=== PATIENT | male | born 1955 | race Caucasian/White ===

== ENCOUNTER 2018-10-26 20:33 | Emergency (ER) | payer OTHER ==
--- OUTSIDE RECORDS SUMMARY | 2018-10-26 20:35 | XMS REPORT | Clinical Summary ---
:1955 Author Organization [facility] Address [address] [place] [address] Care Team Providers Name Role Phone Demarco Pittman MD Primary Care Provider Allergies Not on File Medications Not on file Active Problems Not on file Encounters Date Type Specialty Care Team Description 02/09/2018 Hospital Encounter Radiology Demarco Pittman Benign essential hypertension 02/06/2018 Transcribe Orders Access Demarco Pittman Benign essential hypertension (Primary Dx) 02/02/2018 Transcribe Orders Procedural Demarco Pittman Essential Cardiology hypertension (Primary Dx) after 10/25/2017 Social History Tobacco Use Types Packs/Day Years Used Date Never Assessed Sex Assigned at Date Recorded Not on file Job Start Date Occupation Industry Not on file Not on file Not on file Travel History Travel Start Travel End No recent travel history available. Last Filed Vital Signs Not on file Plan of Treatment Health Maintenance Due Date Last Done Comments COLON CANCER SCREENING 2007 SHINGLES VACCINES (1 of 2) 2007 INFLUENZA VACCINE 05/30/2018 Procedures Procedure Name Priority Date/Time Associated Diagnosis Comments CT HEART SCAN W Routine 02/09/2018 2:55 Benign essential Results for this PHYSICIAN ORDER PM CDT hypertension procedure are in the results section. after 10/25/[address] heart scan w physican order (self pay) (02/09/2018 2:55 PM CDT) Narrative Performed At EXAM: RADIANT CT heart with 3D a calcium score CLINICAL HISTORY: I10 Essential (primary) hypertension, I10 COMPARISON STUDIES: None. TECHNIQUE: Without administration of iodinated contrast intravenously, axial CT images of the heart were obtained. Iterative reconstruction and/or automated exposure control techniques were employed to reduce radiation dose. FINDINGS: CT calcium score. Overall calcium scores: Agatston total calcium score: 108 Total volume score: 68 mm3 Percentile: 60 Artery scores: Left main coronary artery: 0.0 Left anterior descending artery: 107 Left circumflex artery: 0.0 Right coronary artery: 1 Limited chest: Visualized portions of the thymus and esophagus are normal. Heart is normal in size. Right dominant coronary arterial system. Minimal calcification of the aortic valve. Small pericardial effusion. Visualized portions of the ascending and descending thoracic aortas are unremarkable. Main pulmonary artery diameter is normal No visualized mediastinal or hilar adenopathy. Minimal linear opacity lingula, discoid atelectasis versus scar. Otherwise, visualized portions of the lungs are clear. Limited abdomen: 1.1 cm diameter fluid density structure dome of the left lobe of liver, segment 2 (series 2, slice 61), likely a simple cyst. Two additional subcentimeter hypodensities within the dome of the left lobe of liver, segment 2 (series 2, slice 61). These are incompletely evaluated on this noncontrast examination but statistically likely to be simple cysts or hemangiomas. Remainder visualized portions of the liver, stomach, and spleen are unremarkable. Visualized upper abdominal vasculature is unremarkable. No adenopathy in visualized portions of the upper abdomen. Musculoskeletal: No suspicious osseous or soft tissue structures. IMPRESSION: 1. Coronary artery Agatston total calcium score is 108, which places patient in the 60th percentile. 2. No significant extracardiac findings. [facility]-[id number] Procedure Note Hm Interface, Radiology Results Incoming - 02/09/2018 3:42 PM CDT EXAM: CT heart with 3D a calcium score CLINICAL HISTORY: I10 Essential (primary) hypertension, I10 COMPARISON STUDIES: None. TECHNIQUE: Without administration of iodinated contrast intravenously, axial CT images of the heart were obtained. Iterative reconstruction and/or automated exposure control techniques were employed to reduce radiation dose. FINDINGS: CT calcium score. Overall calcium scores: Agatston total calcium score: 108 Total volume score: 68 mm3 Percentile: 60 Artery scores: Left main coronary artery: 0.0 Left anterior descending artery: 107 Left circumflex artery: 0.0 Right coronary artery: 1 Limited chest: Visualized portions of the thymus and esophagus are normal. Heart is normal in size. Right dominant coronary arterial system. Minimal calcification of the aortic valve. Small pericardial effusion. Visualized portions of the ascending and descending thoracic aortas are unremarkable. Main pulmonary artery diameter is normal No visualized mediastinal or hilar adenopathy. Minimal linear opacity lingula, discoid atelectasis versus scar. Otherwise, visualized portions of the lungs are clear. Limited abdomen: 1.1 cm diameter fluid density structure dome of the left lobe of liver, segment 2 (series 2, slice 61), likely a simple cyst. Two additional subcentimeter hypodensities within the dome of the left lobe of liver, segment 2 (series 2, slice 61). These are incompletely evaluated on this noncontrast examination but statistically likely to be simple cysts or hemangiomas. Remainder visualized portions of the liver, stomach, and spleen are unremarkable. Visualized upper abdominal vasculature is unremarkable. No adenopathy in visualized portions of the upper abdomen. Musculoskeletal: No suspicious osseous or soft tissue structures. IMPRESSION: 1. Coronary artery Agatston total calcium score is 108, which places patient in the 60th percentile. 2. No significant extracardiac findings. [facility]-[id number] [facility] Organization Address City/State/Zipcode Phone Number [facility] [address] [place] [address] after 10/25/2017 Advance Directives Patient has advance care planning documents on file. For more information, please contact:[address] [address]
[2018-10-26 21:47] LABS: Absolute Lymphocytes (CBC) 2.7 K/uL (0.7-4.9); Absolute Monocytes 0.6 K/uL (0.1-1.3); Absolute Neutrophil 5.7 K/uL (1.8-8.0); Basophils % 0.9 % (0-1.3); Eosinophils % 3.7 % (0-4.4); Hematocrit 43.2 % (39.6-49.0); Lymphocytes % 28.5 % (15.3-44.8); MPV 9.4 fL (7.6-11.3); Monocytes % 6.6 % (3.3-12.3)
[2018-10-26 21:51] LABS: Protime INR 1.03
[2018-10-26 22:11] LABS: ALT/SGPT 36 U/L (12-78); AST/SGOT 20 U/L (15-37); Albumin 3.8 g/dL (3.4-5.0); Alkaline Phosphatase 69 U/L (45-117); BUN Blood Urea Nitrogen 17 mg/dL (7-18); Bicarbonate 30 mmol/L (21-32); Bilirubin Direct 0.1 mg/dL (0-0.2); Bilirubin Total 0.4 mg/dL (0.2-1.0); Glucose Level 98 mg/dL (74-106); Magnesium 2.3 mg/dL (1.8-2.4); NT PRO-BNP 107 pg/mL (<125); Potassium 4.5 mmol/L (3.5-5.1); Protein, Total 7.4 g/dL (6.4-8.2); Sodium Level 142 mmol/L (136-145); Troponin (Emerg Dept Use Only) < 0.02 ng/mL (0.0-0.045)
[2018-10-26 22:17] LABS: Urine Blood NEGATIVE (NEG); Urine Glucose NEGATIVE (NEG); Urine Protein NEGATIVE (NEG)
[2018-10-26] MEDS ORDERED: ASPIRIN 81 MG CHEWABLE TABLET ONE (22:30)
--- NOTE | 2018-10-27 00:36 | EDPHYS ---
Physician Documentation [facility] Name: Waldo Francis Age: 63 yrs Sex: Male : 1955 Arrival Date: 10/26/2018 Time: 20:36 Bed 30 Private MD: Demarco Pittman V ED Physician Irwin Sena HPI: 10/27 05:12 This 63 yrs old Male presents to ER via Ambulatory with complaints of Chest kdr Pain. 05:12 The patient or guardian reports chest pain that is located primarily in the substernal kdr area. Onset: this morning. The pain does not radiate. Associated signs and symptoms: Pertinent positives: None. Pertinent negatives: diaphoresis, lightheadedness, nausea, near syncope, palpitations, shortness of breath, syncope, vomiting. The chest pain is described as aching, burning, sharp. Duration: The patient or guardian reports multiple episodes, that are intermittent, that wax and wane, with no pattern. Modifying factors: The symptoms are alleviated by nothing. the symptoms are aggravated by nothing. Severity of pain: At its worst the pain was moderate just prior to arrival, in the emergency department the pain has resolved and did so earlier today. The patient has not experienced similar symptoms in the past. The patient has not recently seen a physician. Historical: - Allergies: 10/26 21:01 No Known Allergies; aj - Home Meds: 21:01 Omeprazole Oral [Active]; levothyroxine oral [Active]; losartan oral oral [Active]; aj lisinopril-hydrochlorothiazide oral oral [Active]; - PMHx: 21:01 Hypertension; Hyperlipidemia; Hypothyroidism; aj - PSHx: 21:01 Hernia repair; Knee surgery; aj - Immunization history:: Adult Immunizations up to date. - Social history:: Smoking status: Patient/guardian denies using tobacco. - Ebola Screening: : Patient negative for fever greater than or equal to 101.5 degrees Fahrenheit, and additional compatible Ebola Virus Disease symptoms Patient denies exposure to infectious person Patient denies travel to an Ebola-affected area in the 21 days before illness onset No symptoms or risks identified at this time. ROS: 10/27 05:12 Constitutional: Negative for fever, chills, and weight loss, Eyes: Negative for injury, kdr pain, redness, and discharge, ENT: Negative for injury, pain, and discharge, Neck: Negative for injury, pain, and swelling, Respiratory: Negative for shortness of breath, cough, wheezing, and pleuritic chest pain, Abdomen/GI: Negative for abdominal pain, nausea, vomiting, diarrhea, and constipation, Back: Negative for injury and pain, : Negative for injury, bleeding, discharge, and swelling, MS/Extremity: Negative for injury and deformity, Skin: Negative for injury, rash, and discoloration, Neuro: Negative for headache, weakness, numbness, tingling, and seizure activity. Psych: Negative for depression, anxiety, suicide ideation, homicidal ideation, and hallucinations, Allergy/Immunology: Negative for hives, rash, and allergies, Endocrine: Negative for neck swelling, polydipsia, polyuria, polyphagia, and marked weight changes, Hematologic/Lymphatic: Negative for swollen nodes, abnormal bleeding, and unusual bruising. Cardiovascular: Positive for chest pain, Negative for edema, orthopnea, palpitations, paroxysmal nocturnal dyspnea, acute changes. Exam: 05:12 Constitutional: This is a well developed, well nourished patient who is awake, alert, kdr and in no acute distress. Head/Face: Normocephalic, atraumatic. Eyes: Pupils equal round and reactive to light, extra-ocular motions intact. Lids and lashes normal. Conjunctiva and sclera are non-icteric and not injected. Cornea within normal limits. Periorbital areas with no swelling, redness, or edema. Neck: Trachea midline, no thyromegaly or masses palpated, and no cervical lymphadenopathy. Supple, full range of motion without nuchal rigidity, or vertebral point tenderness. No Meningismus. Chest/axilla: Normal chest wall appearance and motion. Nontender with no deformity. No lesions are appreciated. Cardiovascular: Regular rate and rhythm with a normal S1 and S2. No gallops, murmurs, or rubs. Normal PMI, no JVD. No pulse deficits. Respiratory: Lungs have equal breath sounds bilaterally, clear to auscultation and percussion. No rales, rhonchi or wheezes noted. No increased work of breathing, no retractions or nasal flaring. Abdomen/GI: Soft, non-tender, with normal bowel sounds. No distension or tympany. No guarding or rebound. No evidence of tenderness throughout. Back: No spinal tenderness. No costovertebral tenderness. Full range of motion. Skin: Warm, dry with normal turgor. Normal color with no rashes, no lesions, and no evidence of cellulitis. MS/ Extremity: Pulses equal, no cyanosis. Neurovascular intact. Full, normal range of motion. Neuro: Awake and alert, GCS 15, oriented to person, place, time, and situation. Cranial nerves II-XII grossly intact. Motor strength 5/5 in all extremities. Sensory grossly intact. Cerebellar exam normal. Normal gait. Psych: Awake, alert, with orientation to person, place and time. Behavior, mood, and affect are within normal limits. Vital Signs: 10/26 21:01 BP 153 / 99; Pulse 60; Resp 20; Temp 98.0; Pulse Ox 99% on R/A; Weight 93.44 kg; Height aj 5 ft. 11 in. (180.34 cm); 21:28 BP 144 / 95; Pulse 60; Resp 18; Pulse Ox 100% on R/A; Pain 3/10; mg2 23:32 BP 139 / 85; Pulse 55; Resp 18; Pulse Ox 98% on R/A; Pain 0/10; mg2 10/27 00:49 BP 138 / 85; Pulse 59; Resp 18; Pulse Ox 100% on R/A; Pain 0/10; mg2 10/26 21:01 Body Mass Index 28.73 (93.44 kg, 180.34 cm) aj MDM: 00:36 Patient medically screened. kdr 05:12 Data reviewed: vital signs, nurses notes, lab test result(s), radiologic studies. kdr Counseling: I had a detailed discussion with the patient and/or guardian regarding: the historical points, exam findings, and any diagnostic results supporting the discharge/admit diagnosis, lab results, radiology results, the need for outpatient follow up. 10/26 21: Order name: Basic Metabolic Panel; Complete Time: 23:25 mg2 10/26 21: Order name: CBC with Diff; Complete Time: 23:25 mg2 10/26 21: Order name: LFT's; Complete Time: 23:25 mg2 10/26 21:26 Order name: Magnesium; Complete Time: 23:25 mg2 10/26 21:26 Order name: NT PRO-BNP; Complete Time: 23:25 mg2 10/26 21:26 Order name: PT-INR; Complete Time: 23:25 mg2 10/26 21:26 Order name: Troponin (emerg Dept Use Only); Complete Time: 23:25 mg2 10/26 21:26 Order name: XRAY Chest (1 view) mg2 10/26 21:26 Order name: EKG; Complete Time: 21:27 mg2 10/26 21:26 Order name: Cardiac monitoring; Complete Time: 21:26 mg2 10/26 21:26 Order name: EKG - Nurse/Tech; Complete Time: 21: mg2 10/26 22:12 Order name: Urine Dipstick--Ancillary (enter results); Complete Time: 23:25 mw2 10/26 23:27 Order name: Troponin (emerg Dept Use Only): Repeat two hours after initial test; kdr Complete Time: 00:34 10/26 21:26 Order name: IV Saline Lock; Complete Time: 21: mg2 10/26 21:26 Order name: Labs collected and sent; Complete Time: 21: mg2 10/26 21:26 Order name: O2 Per Protocol; Complete Time: : mg2 10/26 21:26 Order name: O2 Sat Monitoring; Complete Time: 21: mg2 10/26 23:27 Order name: EKG - Nurse/Tech: With 2 hour troponin; Complete Time: 23:50 kdr Administered Medications: 10/26 22:22 Drug: Aspirin Chewable Tablet 324 mg Route: PO; mg2 23:30 Follow up: Response: No adverse reaction mg2 Disposition: 10/27/18 00:36 Discharged to Home. Impression: Chest pain, unspecified. - Condition is Stable. - Discharge Instructions: Nonspecific Chest Pain, [id number]. - Medication Reconciliation Form, Thank You Letter, Antibiotic Education, Prescription Opioid Use form. - Follow up: Demarco Pittman MD; When: 2 - 3 days; Reason: If symptoms return, Further diagnostic work-up, Recheck today's complaints, Continuance of care, Re-evaluation by your physician. - Problem is new. - Symptoms are resolved. Signatures: Dispatcher [employer] EDMS Radha Bean RN RN aj Rittger, Kevin, MD MD kdr Gardose, Michele, RN RN mg2 Corrections: (The following items were deleted from the chart) 10/27 00:52 00:36 10/27/2018 00:36 Discharged to Home. Impression: Chest pain, unspecified. mg2 Condition is Stable. Forms are Medication Reconciliation Form, Thank You Letter, Antibiotic Education, Prescription Opioid Use. Follow up: Demarco Pittman; When: 2 - 3 days; Reason: If symptoms return, Further diagnostic work-up, Recheck today's complaints, Continuance of care, Re-evaluation by your physician. Problem is new. Symptoms are resolved. kdr
--- NOTE | 2018-10-27 00:36 | ER ---
Nurse's Notes [facility] Name: Waldo Francis Age: 63 yrs Sex: Male : 1955 Arrival Date: 10/26/2018 Time: 20:36 Bed 30 Private MD: Demarco Pittman V Diagnosis: Chest pain, unspecified Presentation: 10/26 20:59 Presenting complaint: Patient states: Sternal chest pain that started upon waking this aj AM. Reports occasional nausea. Transition of care: patient was not received from another setting of care. Onset of symptoms was October 26, 2018. Risk Assessment: Do you want to hurt yourself or someone else? Patient reports no desire to harm self or others. Initial Sepsis Screen: Does the patient meet any 2 criteria? No. Patient's initial sepsis screen is negative. Does the patient have a suspected source of infection? No. Patient's initial sepsis screen is negative. Care prior to arrival: None. 20:59 Method Of Arrival: Ambulatory aj 20:59 Acuity: JOSE 3 aj Triage Assessment: 21:01 General: Appears in no apparent distress. comfortable, Behavior is calm, cooperative, aj appropriate for age. Pain: Complains of pain in mid-sternal area. Neuro: Level of Consciousness is awake, alert, obeys commands, Oriented to person, place, time, situation, Appropriate for age. Cardiovascular: Reports chest pain, nausea, Capillary refill < 3 seconds in bilateral fingers Patient's skin is warm and dry. Respiratory: Airway is patent Respiratory effort is even, unlabored, Respiratory pattern is regular, symmetrical. Derm: Skin is intact, is healthy with good turgor, Skin is pink, warm \T\ dry. normal. Historical: - Allergies: 21:01 No Known Allergies; aj - Home Meds: 21:01 Omeprazole Oral [Active]; levothyroxine oral [Active]; losartan oral oral [Active]; aj lisinopril-hydrochlorothiazide oral oral [Active]; - PMHx: 21:01 Hypertension; Hyperlipidemia; Hypothyroidism; aj - PSHx: 21:01 Hernia repair; Knee surgery; aj - Immunization history:: Adult Immunizations up to date. - Social history:: Smoking status: Patient/guardian denies using tobacco. - Ebola Screening: : Patient negative for fever greater than or equal to 101.5 degrees Fahrenheit, and additional compatible Ebola Virus Disease symptoms Patient denies exposure to infectious person Patient denies travel to an Ebola-affected area in the 21 days before illness onset No symptoms or risks identified at this time. Screenin:28 Abuse screen: Denies threats or abuse. Denies injuries from another. Nutritional mg2 screening: No deficits noted. Tuberculosis screening: No symptoms or risk factors identified. Fall Risk IV access (20 points). Assessment: 21:27 General: Appears in no apparent distress. comfortable, Behavior is calm, cooperative. mg2 Pain: Complains of pain in mid-sternal area Pain does not radiate. Pain currently is 3 out of 10 on a pain scale. Quality of pain is described as pressure, Pain began gradually, 7 am this morning Is intermittent. Neuro: Level of Consciousness is awake, alert, obeys commands, Oriented to person, place, time, situation. Cardiovascular: Capillary refill < 3 seconds Patient's skin is warm and dry. Respiratory: Airway is patent Respiratory effort is even, unlabored, Respiratory pattern is regular, symmetrical. GI: No signs and/or symptoms were reported involving the gastrointestinal system. : No signs and/or symptoms were reported regarding the genitourinary system. EENT: No deficits noted. Derm: Skin is intact, is healthy with good turgor, Skin is pink, warm \T\ dry. normal. Musculoskeletal: No signs and/or symptoms reported regarding the musculoskeletal system. 23:16 Reassessment: Patient appears in no apparent distress at this time. Patient and/or mg2 family updated on plan of care and expected duration. Pain level reassessed. Patient is alert, oriented x 3, equal unlabored respirations, skin warm/dry/pink. 23:31 Reassessment: Patient appears in no apparent distress at this time. Patient and/or mg2 family updated on plan of care and expected duration. Pain level reassessed. Patient is alert, oriented x 3, equal unlabored respirations, skin warm/dry/pink. 10/27 00:49 Reassessment: patient improved. pain-free. mg2 Vital Signs: 10/26 21:01 BP 153 / 99; Pulse 60; Resp 20; Temp 98.0; Pulse Ox 99% on R/A; Weight 93.44 kg; Height aj 5 ft. 11 in. (180.34 cm); 21:28 BP 144 / 95; Pulse 60; Resp 18; Pulse Ox 100% on R/A; Pain 3/10; mg2 23:32 BP 139 / 85; Pulse 55; Resp 18; Pulse Ox 98% on R/A; Pain 0/10; mg2 10/27 00:49 BP 138 / 85; Pulse 59; Resp 18; Pulse Ox 100% on R/A; Pain 0/10; mg2 10/26 21:01 Body Mass Index 28.73 (93.44 kg, 180.34 cm) aj ED Course: 10/26 20:36 Patient arrived in ED. es 20:36 Demarco Pittman MD is Private Physician. es 21:00 Triage completed. aj 21:01 Arm band placed on left wrist. Patient placed in waiting room, Patient notified of wait aj time. EKG completed in triage. Results shown to MD. 21:25 Irwin Sena MD is Attending Physician. kdr 21:26 Genaro Blunt RN is Primary Nurse. mg2 21:28 No provider procedures requiring assistance completed. Inserted saline lock: 20 gauge mg2 in right antecubital area, using aseptic technique. Blood collected. Patient maintains SpO2 saturation greater than 95% on room air. 21:29 Patient has correct armband on for positive identification. cardiac monitor on. Pulse mg2 ox on. NIBP on. Door closed. 21:44 Initial lab(s) drawn, by ED staff, sent to lab. jp3 21:44 Urine collected: clean catch specimen, clear, tay colored. jp3 21:44 Basic Metabolic Panel Sent. jp3 21:44 CBC with Diff Sent. jp3 21:44 LFT's Sent. jp3 21:45 Magnesium Sent. jp3 21:45 NT PRO-BNP Sent. jp3 21:45 PT-INR Sent. jp3 21:45 Troponin (emerg Dept Use Only) Sent. jp3 21:57 XRAY Chest (1 view) In Process Unspecified. EDMS 10/27 00:35 Demarco Pittman MD is Referral Physician. kdr 00:50 IV discontinued, intact, bleeding controlled, No redness/swelling at site. Pressure mg2 dressing applied. Administered Medications: 10/26 22:22 Drug: Aspirin Chewable Tablet 324 mg Route: PO; mg2 23:30 Follow up: Response: No adverse reaction mg2 Outcome: 10/27 00:36 Discharge ordered by . kdr 00:50 Discharged to home ambulatory, with family. mg2 00:50 Condition: stable 00:50 Discharge instructions given to patient, family, Instructed on discharge instructions, follow up and referral plans. Demonstrated understanding of instructions, follow-up care. 00:52 Patient left the ED. mg2 Signatures: Dispatcher [employer] Radha Jacobsen RN RN aj Rittger, Kevin, MD MD kdr Salyer, Edna es Gardose, Michele, RN RN mg2 Herb Soares jp3 Corrections: (The following items were deleted from the chart) 10/26 21:03 21:01 Arm band placed on left wrist. Patient placed in an exam room, josep car
--- NOTE | 2018-10-27 08:28 | EKG ---
Test Date: 2018-10-26 Test Time: 21:00:20 Gold Nib Grinder: CAITLYN MEASUREMENT RESULTS: Intervals: Rate: 57 [place]: 174 QRSD: 84 QT: 408 QTc: 397 [place]: P: 57 [place]: 174 QRS: 63 T: 45 INTERPRETIVE STATEMENTS: Sinus bradycardia Otherwise normal ECG Compared to ECG 01/03/2003 10:04:00 Right-axis deviation no longer present Electronically Signed On 10-27-18 08:26:56 WIRE FRAME LAMPSHADE MAKER by Cedric Castillo
--- NOTE | 2018-10-27 08:57 | RAD REPORT ---
EXAM DESCRIPTION: RAD - Chest Single View - 10/26/2018 9:57 pm CLINICAL HISTORY: Chest pain COMPARISON: November 2008 TECHNIQUE: AP portable chest image was obtained 2150 hours . FINDINGS: Lungs are clear. Lung markings similar to comparison. Heart and vasculature are normal. No measurable pleural effusion and no pneumothorax. No acute bony abnormality seen. No acute aortic fin dings suspected. IMPRESSION: No acute cardiopulmonary process. No significant interval change.
--- NOTE | 2018-10-28 10:19 | EKG ---
Test Date: 2018-10-26 Test Time: 23:42:09 Hard Hat Diver: MEASUREMENT RESULTS: Intervals: Rate: 51 OR: 178 QRSD: 82 QT: 412 QTc: 379 [place]: P: 52 OR: 178 QRS: 33 T: 44 INTERPRETIVE STATEMENTS: Sinus bradycardia Otherwise normal ECG Compared to ECG 10/26/2018 21:00:20 No significant changes Electronically Signed On 10-28-18 10:18:13 DRYER FEEDER by Cedric Castillo
== END 2018-10-27 00:52 | disposition home or self-care (01) ==
LOC: ER 20:33
DX: R07.9 Chest pain, unspecified (principal); E78.5 Hyperlipidemia, unspecified; E03.9 Hypothyroidism, unspecified; I10 Essential (primary) hypertension; Z79.899 Other long term (current) drug therapy
CPT/HCPCS: 36415; 71045; 80048; 80076; 81003; 83735; 83880; 84484; 85025; 85610; 93005; 99285

== ENCOUNTER 2019-03-26 02:09 | Emergency (ER) | payer OTHER ==
--- OUTSIDE RECORDS SUMMARY | 2019-03-26 02:12 | XMS REPORT | Clinical Summary ---
:1955 Author Organization [facility] Address [address] [place] [address] Care Team Providers Name Role Phone Demarco Pittman MD Primary Care Provider Allergies Not on File Medications Not on file Active Problems Not on file Social History Tobacco Use Types Packs/Day Years [...] Comments COLON CANCER SCREENING 2007 SHINGLES VACCINES (#1) 2007 INFLUENZA VACCINE 05/30/2019 Results Not on fileafter 03/25/2018 Advance Directives Patient has advance care planning documents on file. For more information, please contact:[address] [place] [address]
[2019-03-26] MEDS ORDERED: ONDANSETRON 4 MG/2 ML VIAL ONE (02:42)
[2019-03-26] MEDS ORDERED: FAMOTIDINE 20 MG/2 ML VIAL IV ONE (02:42)
[2019-03-26] MEDS ORDERED: NA CHLORIDE 0.9% 1,000 ML ONE (02:42)
[2019-03-26 02:47] LABS: Absolute Monocytes 0.7 K/uL (0.1-1.3); Absolute Neutrophil 14.8 K/uL (1.8-8.0); Basophils % 0.3 % (0-1.3); Eosinophils % 0.1 % (0-4.4); Hematocrit 45.1 % (39.6-49.0); Lymphocytes % 11.2 % (15.3-44.8); MPV 9.4 fL (7.6-11.3); Monocytes % 3.8 % (3.3-12.3); RBC Red Blood Cell Count 5.35 M/uL (4.33-5.43)
[2019-03-26 03:05] LABS: Bilirubin Direct 0.2 mg/dL (0-0.2); Bilirubin Total 1.2 mg/dL (0.2-1.0); Potassium 3.7 mmol/L (3.5-5.1); Protein, Total 8.3 g/dL (6.4-8.2)
--- NOTE | 2019-03-26 03:51 | ER ---
Nurse's Notes [facility] Name: Waldo Francis Age: 63 yrs Sex: Male : 1955 Arrival Date: 03/26/2019 Time: 02:15 Bed 8 Private MD: Demarco Pittman V Diagnosis: Vomiting Presentation: 03/26 02:21 Presenting complaint: Patient states: Pt reports Tooth pain, nausea and vomiting that ea started this afternoon. Pt reports the vomiting looks like coffee grounds. Pt reports abdominal cramping. Transition of care: patient was not received from another setting of care. Onset of symptoms was March 26, 2019. Risk Assessment: Do you want to hurt yourself or someone else? Patient reports no desire to harm self or others. Initial Sepsis Screen: Does the patient meet any 2 criteria? No. Patient's initial sepsis screen is negative. Does the patient have a suspected source of infection? No. Patient's initial sepsis screen is negative. Care prior to arrival: None. 02:21 Method Of Arrival: Ambulatory ea 02:21 Acuity: JOSE 3 ea Triage Assessment: 02:25 General: Appears uncomfortable, Behavior is calm, cooperative, appropriate for age. ea Pain: Complains of pain in right lower quadrant and left lower quadrant Quality of pain is described as crampy. EENT: No signs and/or symptoms were reported regarding the EENT system. Neuro: Level of Consciousness is awake, alert, obeys commands, Oriented to person, place, time, situation. Cardiovascular: Patient's skin is warm and dry. GI: Abdomen is flat, Reports cramping, nausea, vomiting. Derm: Skin is dry, Skin is flushed, Skin temperature is warm. - Immunization history:: Adult Immunizations up to date. - Social history:: Smoking status: Patient/guardian denies using tobacco. - Ebola Screening: : No symptoms or risks identified at this time. Screenin:23 Abuse screen: Denies threats or abuse. Nutritional screening:. Tuberculosis screening: ea No symptoms or risk factors identified. Fall Risk None identified. Assessment: 02:28 Reassessment: see triage assessment. ea 03:06 Reassessment: Patient and/or family updated on plan of care and expected duration. Pain ea level reassessed. Patient is alert, oriented x 3, equal unlabored respirations, skin warm/dry/pink. Vital Signs: 02:23 BP 157 / 102; Pulse 78; Resp 20; Temp 97.2(TE); Pulse Ox 98% on R/A; Weight 92.99 kg; ea Height 5 ft. 11 in. (180.34 cm); Pain 9/10; 03:06 BP 139 / 81; Pulse 60; Resp 18; Pulse Ox 95% on R/A; ea 04:00 BP 140 / 68; Pulse 60; Resp 18; Temp 97.8; Pulse Ox 98% ; ea 02:23 Body Mass Index 28.59 (92.99 kg, 180.34 cm) ea ED Course: 02:15 Patient arrived in ED. do 02:15 Demarco Pittman MD is Private Physician. do 02:20 Raul Hernandez PA is PHCP. cp 02:20 Rigo Pastrana MD is Attending Physician. cp 02:20 Theodora King RN is Primary Nurse. ea 02:22 Triage completed. ea 02:24 Patient has correct armband on for positive identification. Bed in low position. Call ea light in reach. Side rails up X 1. 02:25 Arm band placed on right wrist. Patient placed in an exam room, on a stretcher, on ea pulse oximetry. 02:41 Inserted saline lock: 20 gauge in right forearm, using aseptic technique. Blood oe collected. 04:10 No provider procedures requiring assistance completed. IV discontinued, intact, ea bleeding controlled, No redness/swelling at site. Pressure dressing applied. Administered Medications: 02:40 Drug: NS 0.9% 1000 ml Route: IV; Rate: 1 bolus; Site: right forearm; rr5 07:10 Follow up: Response: No adverse reaction; IV Status: Completed infusion; IV Intake: ea 1000ml 02:42 Drug: Zofran 4 mg Route: IVP; Site: right forearm; rr5 03:30 Follow up: Response: No adverse reaction; Marked relief of symptoms ea 02:44 Drug: Pepcid 20 mg Route: IVP; Site: right forearm; rr5 03:30 Follow up: Response: No adverse reaction ea Intake: 07:10 IV: 1000ml; Total: 1000ml. ea Outcome: 03:49 Discharge ordered by . gs 04:10 Discharged to home ambulatory, with significant other. ea 04:10 Condition: improved 04:10 Discharge instructions given to patient, Instructed on discharge instructions, follow up and referral plans. medication usage, Demonstrated understanding of instructions, follow-up care, medications. 04:12 Patient left the ED. ea Signatures: Raul Hernandez PA PA cp [place]letree, Marcia Marsh, Theodora Zheng RN RN Rigo Chin MD MD Peter Shaw RN RN rr5
--- NOTE | 2019-03-26 03:51 | EDPHYS ---
Physician Documentation [facility] Name: Waldo Francis Age: 63 yrs Sex: Male : 1955 Arrival Date: 03/26/2019 Time: 02:15 Bed 8 Private MD: Demarco Pittman V ED Physician Rigo Pastrana HPI: 03/26 02:30 This 63 yrs old Male presents to ER via Ambulatory with complaints of cp Nausea/Vomiting, Toothache. 02:30 The patient presents to the emergency department with nausea, with "dry heaves", cp vomiting, 8 times since last night, described as coffee ground in nature. Onset: The symptoms/episode began/occurred last night. Possible causes: antibiotics, penicillin, for tooth pain. Associated signs and symptoms: Pertinent positives: nausea, vomiting, dental pain, Pertinent negatives: constipation, diarrhea, fever, GI bleeding. Severity of symptoms: in the emergency department the symptoms are unchanged despite home interventions. - Immunization history:: Adult Immunizations up to date. - Social history:: Smoking status: Patient/guardian denies using tobacco. - Ebola Screening: : No symptoms or risks identified at this time. ROS: 02:35 Constitutional: Positive for poor PO intake, Negative for body aches, chills, fever. cp 02:35 Eyes: Negative for injury, pain, redness, and discharge. cp 02:35 ENT: Negative for drainage from ear(s), ear pain, sore throat, difficulty swallowing, difficulty handling secretions. 02:35 Cardiovascular: Negative for chest pain, edema, palpitations. 02:35 Respiratory: Negative for cough, shortness of breath, wheezing. 02:35 Abdomen/GI: Positive for nausea, vomiting, Negative for abdominal pain, diarrhea, constipation, hematemesis, black/tarry stool, rectal bleeding. 02:35 Back: Negative for pain at rest, pain with movement, radiated pain. 02:35 : Negative for urinary symptoms, testicular pain 02:35 Skin: Negative for rash. 02:35 Neuro: Negative for altered mental status, headache, syncope, weakness. 02:35 All other systems are negative. Exam: 02:40 Constitutional: The patient appears in no acute distress, alert, awake, cp non-diaphoretic, well developed, well nourished. 02:40 Head/Face: Normocephalic, atraumatic. cp 02:40 Eyes: Periorbital structures: appear normal, Conjunctiva: normal, no exudate, no injection, Sclera: no appreciated abnormality, Lids and lashes: appear normal, bilaterally. 02:40 Neck: ROM/movement: is normal, is supple, without pain, no range of motions limitations, no nuchal rigidity. 02:40 Chest/axilla: Inspection: normal, Palpation: is normal, no crepitus, no tenderness. 02:40 Cardiovascular: Rate: normal, Rhythm: regular. 02:40 Respiratory: the patient does not display signs of respiratory distress, Respirations: normal, no use of accessory muscles, no retractions, no splinting, no tachypnea, labored breathing, is not present, Breath sounds: are clear throughout, no decreased breath sounds, no stridor, no wheezing. 02:40 Abdomen/GI: Inspection: abdomen appears normal, Bowel sounds: active, all quadrants, Palpation: soft, in all quadrants, mild abdominal tenderness, in all quadrants. 02:40 ENT: External ear(s): are unremarkable, Nose: is normal, Mouth: Lips: moist, Oral cp mucosa: moist, abscess, is not appreciated, Posterior pharynx: Airway: no evidence of obstruction, patent, Tonsils: are normal in appearance, Dental exam: dental caries, that is mild, diffusely, pain, that is mild, specifically in the lower left lateral incisor (#23). Vital Signs: 02:23 BP 157 / 102; Pulse 78; Resp 20; Temp 97.2(TE); Pulse Ox 98% on R/A; Weight 92.99 kg; ea Height 5 ft. 11 in. (180.34 cm); Pain 9/10; 03:06 BP 139 / 81; Pulse 60; Resp 18; Pulse Ox 95% on R/A; ea 04:00 BP 140 / 68; Pulse 60; Resp 18; Temp 97.8; Pulse Ox 98% ; ea 02:23 Body Mass Index 28.59 (92.99 kg, 180.34 cm) ea MDM: 02:23 Patient medically screened. cp 03:42 Data reviewed: vital signs, nurses notes. Response to treatment: the patient's symptoms gs have resolved after treatment, the patient's condition has returned to base line. ED course: pt refuses cat scan back to baseline will send home with zofran. examined pt ab soft nontender nonsurgical. 03:50 Counseling: I had a detailed discussion with the patient and/or guardian regarding: the gs historical points, exam findings, and any diagnostic results supporting the discharge/admit diagnosis, the presence of at least one elevated blood pressure reading (>120/80) during this emergency department visit, lab results, the need for outpatient follow up. 03:50 Special discussion: I have referred the patient to see his PCP for further evaluation gs of high blood pressure. 03/26 02:24 Order name: Basic Metabolic Panel; Complete Time: 03:42 cp 03/26 02:24 Order name: CBC with Diff; Complete Time: 02:56 cp 03/26 02:24 Order name: Creatinine for Radiology; Complete Time: 03:42 cp 03/26 02:24 Order name: Hepatic Function; Complete Time: 03:42 cp 03/26 02:24 Order name: Lipase; Complete Time: 03:42 cp 03/26 02:24 Order name: IV Saline Lock; Complete Time: 02:53 cp 03/26 02:24 Order name: Labs collected and sent; Complete Time: 02:53 cp Administered Medications: 02:40 Drug: NS 0.9% 1000 ml Route: IV; Rate: 1 bolus; Site: right forearm; rr5 07:10 Follow up: Response: No adverse reaction; IV Status: Completed infusion; IV Intake: ea 1000ml 02:42 Drug: Zofran 4 mg Route: IVP; Site: right forearm; rr5 03:30 Follow up: Response: No adverse reaction; Marked relief of symptoms ea 02:44 Drug: Pepcid 20 mg Route: IVP; Site: right forearm; rr5 03:30 Follow up: Response: No adverse reaction ea Disposition: 19:43 Co-signature as Attending Physician, Rigo Pastrana MD. gs Disposition: 03/26/19 03:49 Discharged to Home. Impression: Vomiting. - Condition is Stable. - Discharge Instructions: Nausea and Vomiting, Adult, Managing Your Hypertension. - Prescriptions for Zofran 4 mg Oral Tablet - take 1 tablet by ORAL route every 12 hours As needed; 10 tablet. - Medication Reconciliation Form, Thank You Letter, Antibiotic Education, Prescription Opioid Use form. - Follow up: Private Physician; When: 1 - 2 days; Reason: Re-evaluation by your physician. Signatures: Dispatcher [employer] EDMS Raul Hernandez PA PA cp Antunez, Elena RN Rigo Odonnell ea, MD MD gs Roque, Raymond RN RN rr5 Corrections: (The following items were deleted from the chart) 03:01 02:40 ENT: External ear(s): are unremarkable, Nose: is normal, Mouth: Lips: moist, Oral cp mucosa: pink and intact, moist, Posterior pharynx: is normal, airway is patent, no erythema, no exudate, cp 03:40 02:56 Abdomen Pelvis W Con+CT.RAD.BRZ ordered. EDNY EDMS 04:12 03:49 03/26/2019 03:49 Discharged to Home. Impression: Vomiting. Condition is Stable. ea Forms are Medication Reconciliation Form, Thank You Letter, Antibiotic Education, Prescription Opioid Use. Follow up: Private Physician; When: 1 - 2 days; Reason: Re-evaluation by your physician.
== END 2019-03-26 04:12 | disposition home or self-care (01) ==
LOC: ER 02:09
DX: R11.2 Nausea with vomiting, unspecified (principal); K08.89 Other specified disorders of teeth and supporting structures
CPT/HCPCS: 36415; 80048; 80076; 83690; 85025; 96361; 96374; 96375; 99284; J2405; J7030